=== PATIENT | female | born 1995 | race African-American/Black ===

== ENCOUNTER 2017-04-14 21:54 | Emergency (ER) | payer SELFPAY ==
[~2017-04-14] VITALS: Ht 165.1 cm; Wt 145.4 kg
[2017-04-14] MEDS ORDERED: SULFAMETHOX/TRIMETH DS 800-160 MG/TABLET PO ONE (23:30)
[2017-04-14] MEDS ORDERED: BACITRACIN 0.9 GM PACKET OINTMENT TP ONE (23:30)
[2017-04-14] MEDS ORDERED: CEPHALEXIN MONOHYDRATE 250 MG/5 ML SUSPENSION ORAL.SYG PO ONE (23:30)
[2017-04-15] MEDS ORDERED: CEPHALEXIN MONOHYDRATE 500 MG CAPSULE PO ONE (00:15)
[2017-04-15 01:23] VITALS: BP 103/76
== END 2017-04-15 01:25 | disposition home or self-care (01) ==
LOC: EMS 21:55
DX: L03.311 Cellulitis of abdominal wall (principal); K21.9 Gastro-esophageal reflux disease without esophagitis
CPT/HCPCS: 99284